=== PATIENT | female | born 1980 | race Caucasian/White ===

== ENCOUNTER 2019-10-10 17:04 | Emergency (ER) | payer OTHER ==
--- OUTSIDE RECORDS SUMMARY | 2019-10-10 17:11 | XMS REPORT | Continuity of Care Document ---
:1980 External Reference #:[id number] Author Name Leonie York M.D. (transmitted by agent of provider Maricruz Sharp) Address [address] [place] [id number] Care Team Providers Name Role Phone Maria Shen MD - Internal Care Team Information Retail Selling Floor Leader Medicine Problems Active Problems Provider Date Skin sensation disturbance Kvng Mabry M.D. Onset: 07/08/2019 Neuralgic amyotrophy Kvng Mabry M.D. Onset: 07/08/2019 Psoas tendinitis Priscilla Gonzalez M.D. Onset: 01/31/2019 Localized, primary osteoarthritis of the Priscilla Gonzalez M.D. Onset: 01/31/2019 pelvic region and thigh Social History Type Date Description Comments Sex Unknown Tobacco Use Start: Unknown Never Smoked Cigarettes Smoking Status Reviewed: 09/14/19 Never Smoked Cigarettes ETOH Use Drinks 3 Alcoholic Beverages Per Week Tobacco Use Start: Unknown Patient has never smoked Recreational Drug Use Current Drug User Exercise Type/Frequency Exercises regularly Allergies, Adverse Reactions, Alerts Active Allergies Reaction Severity Comments Date Sulfa Drugs 01/31/2019 Medications Active Medications SIG Qnty Indications Ordering Provider Date Gabapentin 1 by mouth three 90tabs G54.5 Kvng Mabry 07/08/2019 600mg times a day M.D. Tablets Lexapro 30 mg one a day Unknown Trazodone HCL take every night Unknown 100mg at bedtime. Tablets Meloxicam take one tab Unknown 7.5mg twice daily as Tablets needed for pain, avoid other nsaids Alprazolam as needed Unknown Control Pills one at night Unknown Hydrocodone-Acetamin 1 or 2 tabs by Unknown ophen mouth every 6-8 5-325mg Tablets hours as needed for pain Multi Complete daily Unknown Capsules Turmeric Root apply to Unknown Powder shoulders and elbows as needed [place] 3 1 by mouth twice Unknown 1000mg a day Capsules Escitalopram Oxalate 1 by mouth every Unknown day 20mg Tablets Medications Administered in Office Medication SIG Qnty Indications Ordering Provider Date No Injection Priscilla Gonzalez M.D. 03/21/2019 Injection Depomedrol 40MG Priscilla Gonzalez M.D. 03/21/2019 Injection Immunizations Description No Information Available Vital Signs Date Vital Result Comment 09/14/2019 3:12pm Height 62.5 inches 5'2.50" Weight 143.00 lb Heart Rate 72 /min BP Systolic 122 mmHg BP Diastolic 70 mmHg Respiratory Rate 12 /min Body Temperature 99.0 F Pain Level 4 BMI (Body Mass Index) 25.7 kg/m2 07/08/2019 2:03pm Height 62 inches 5'2" Weight 137.00 lb Heart Rate 61 /min BP Systolic 110 mmHg BP Diastolic 82 mmHg BMI (Body Mass Index) 25.1 kg/m2 Results Test Acquired Date Facility Test Result H/L Range Note Comp Metabolic 07/08/2019 [facility] Sodium 137 mmol/L Normal 135-145 Panel [address] [place] [address] [phone] Potassium 4.4 mmol/L Normal 3.5-5.0 Chloride 102 mmol/L Normal 101-111 Co2 Carbon Dioxide 27 mmol/L Normal 22-32 Anion Gap 8 mmol/L Normal 2-11 Glucose 90 mg/dL Normal 70-100 Blood Urea Nitrogen 13 mg/dL Normal 6-24 Creatinine 0.68 mg/dL Normal 0.51-0.95 BUN/Creatinine Ratio 19.1 Normal 8-20 Calcium 9.9 mg/dL Normal 8.6-10.3 Total Protein 7.1 g/dL Normal 6.4-8.9 Albumin 4.8 g/dL Normal 3.2-5.2 Globulin 2.3 g/dL Normal 2-4 Albumin/Globulin Ratio 2.1 Normal 1-3 Total Bilirubin 0.30 mg/dL Normal 0.2-1.0 Alkaline Phosphatase 60 U/L Normal 34-104 Alt 17 U/L Normal 7-52 Ast 21 U/L Normal 13-39 Egfr Non- 95.4 >60 Egfr 115.4 >60 1 Laboratory test 07/08/2019 [facility] Erythrocyte Sed 3 mm/Hr Normal 0-[address] [place] [address] [phone] C Reactive Protein 5.12 mg/L Normal <8.01 3 Nuclear AB ([place]) By Ifa Igg <1:80 (Negative) 4 Xray 03/21/2019 [facility] Inj/Aspir Major JT Or Bursa W/ US <pending> 1 Because ethnic data is not always readily available, this report includes an eGFR for both -Americans and non- Americans. The National Kidney Disease Education Program (NKDEP) does not endorse the use of the MDRD equation for patients that are not between the ages of 18 and 70, are , have extremes of body size, muscle mass, or nutritional status, or are non- or non-. According to the National Kidney Foundation, irrespective of diagnosis, the stage of the disease is based on the level of kidney function: Stage Description GFR(mL/min/1.73 m(2)) 1 Kidney damage with normal or decreased GFR 90 2 Kidney damage with mild decrease in GFR 60-89 3 Moderate decrease in GFR 30-59 4 Severe decrease in GFR 15-29 5 Kidney failure <15 (or dialysis) 2 Copy Result to: MARIA SHEN ([id number]) 3 Copy Result to: MARIA SHEN ([id number]) 4 <1:80 (Negative) REFERENCE VALUE <1:80 (Negative) Test Performed by: [facility] [address] [place] [address] Speech Therapy Director: Eliud Isabel M.D. Ph.D.; CLIA# [id number] Procedures Date Code Description Status 08/24/2019 25129 Nerve Conduction 09-10 Studies Completed 08/24/2019 66865 Needle Electromyography Complete, Five Or More Muscles Completed Studied 03/21/201994693 Inj/Aspir Major JT Or Bursa W/ US Completed Medical Devices Description No Information Available Encounters Type Date Location Provider Dx Diagnosis Office Visit 07/08/2019 [facility] Kvng Mabry, G54.5 [facility] Paresthesia of skin Office Visit 04/04/2019 2:15p [facility] Priscilla Gonzalez, M25.552 Pain in left at [place] M.D. hip M16.12 Unilateral primary osteoarthritis, left hip M76.12 Psoas tendinitis, left hip Office Visit 03/21/2019 3:00p [facility] Priscilla Gonzalez, M25.552 Pain in left at [place] M.D. hip M16.12 Unilateral primary osteoarthritis, left hip M76.12 Psoas tendinitis, left hip Assessments Date Code Description Provider 09/14/2019 S43.421A Sprain of right rotator cuff capsule, Leonie York M.D. initial encounter 08/24/2019 G54.5 Neuralgic amyotrophy Nyasia Erazo MD 07/08/2019 G54.5 Neuralgic amyotrophy Kvng Mabry M.D. 07/08/2019 R20.2 Paresthesia of skin Kvng Mabry M.D. 04/04/2019 M25.552 Pain in left hip Priscilla Gonzalez M.D. 04/04/2019 M16.12 Unilateral primary osteoarthritis, left Priscilla Gonzalez M.D. hip 04/04/2019 M76.12 Psoas tendinitis, left hip Priscilla Gonzalez M.D. 03/21/2019 M25.552 Pain in left hip Priscilla Gonzalez M.D. 03/21/2019 M16.12 Unilateral primary osteoarthritis, left Priscilla Gonzalez M.D. hip 03/21/2019 M76.12 Psoas tendinitis, left hip Priscilla Gonzalez M.D. Plan of Treatment Future Appointment(s):10/21/2019 3:30 pm - Kvng Mabry M.D. at [facility]09/14/2019 - Leonie York M.D.S43.421A Sprain of right rotator cuff capsule, initial encounterNew Therapy:Physical TherapyFollow up:Follow up: As needed Functional Status Description No Information Available Mental Status Description No Information Available Referrals Refer to Reason for Referral Status Appt Date Sha Sidhu MD psoas tendonitis, hip pain/grinding/oa - surg Closed consult [address] [facility] [address] [place], [place] [id number] [phone]
--- OUTSIDE RECORDS SUMMARY | 2019-10-10 17:12 | XMS REPORT | Continuity of Care Document ---
:1980 External Reference #:[id number] Author Name Maria Shen M.D. Address [address] [place] [address] Care Team Providers Name Role Phone Maria Shen - Family Medicine Care Team Information Training Program Assistant [facility] Utilization [employer] Mate Care Team Information Training Program Assistant [phone] - Health Educator Burton Yadav MD - Sports Medicine Care Team Information Training Program Assistant Deangelo Mcneil MD - Physical Care Team Information Training Program Assistant Medicine & Rehabilitation Problems Active Problems Provider Date Neuralgic amyotrophy Maria Shen M.D. Onset: 01/20/2019 Adjustment disorder with depressed mood Maria Shen M.D. Onset: 2014 Adjustment disorder with anxious mood Maria Shen M.D. Onset: 2014 Vitamin D deficiency Maria Shen M.D. Onset: 05/25/2015 Adjustment disorder with mixed emotional Maria Shen M.D. Onset: 05/25 features Chronic rhinitis Maria Shen M.D. Onset: 05/25/2015 Social History Type Date Description Comments Sex Unknown Tobacco Use Start: Unknown Nonsmoker ETOH Use Occasional 5 drinks a week, max. Exercise Type/Frequency Exercises regularly hiking-every weekend, walking- treadmill at home 1/2 hour daily. Seat Belt/Car Seat Always uses seat belt Allergies, Adverse Reactions, Alerts Active Allergies Reaction Severity Comments Date Sulfa high fever 12/13/2013 Medications Active Medications SIG Qnty Indications Ordering Date Provider Meloxicam Take 1 Tablet By 60tabs G54.5 Maria Hernandez 12/23/2018 7.5mg Tablets Mouth Once To Richi Shen Twice A Day With Food Hydrocodone-Acetamino 1-2 by mouth 4 240tabs M25.552 Maria Hernandez 10/15/2018 phen times a day as Richi Shen 5-325mg Tablets needed new parsonage cortez syndrome Azelastine HCL 1-2 sprays each 30units J31.0 Maria Hernandez 05/25/2015 (Nasal) nostril up to Richi Shen 0.1% Solution twice daily Trazodone HCL Take 1 To 4 120tabs G47.00 Maria Hernandez 06/12/2014 50mg Tablets By Mouth Richi Shen Tablets AT Bedtime Enpresse-28 1 by mouth every 1pack Maria Hernandez Tablets day Richi Shen Herbal Wellness 1 po qd prn Unknown Formula Lexapro 3 PO qd Unknown 10mg Tablets Alprazolam 1 by mouth daily Unknown 0.25mg Tablets Methocarbamol take 1 tablet 30tabs Maria Hernandez 750mg once a day as Richi Shen Tablets needed Gabapentin take one tablet G54.5 Unknown 600mg by mouth three Tablets times a day History Medications Physical Therapy evaluate and treat M25.552 Maria Hernandez 05/06/2019 - lumbar radiculopathy Richi Shen 09/02/2019 Immunizations CPT Code Status Date Vaccine Lot # [id number] Given 05/06/2019 Influenza Vac, Quadrivalent, Slit Virus, Im [id number] Given 08/05/2018 Influenza vac quadrivalent preservative free 6 months and up 61451 Given 06/09/2016 Influenza Vac, Quadrivalent, Slit Virus, Im [id number] 74617 Given 05/25/2015 Influenza Vac, Quadrivalent, Slit Virus, Im [id number] Vital Signs Date Vital Result Comment 09/02/2019 10:46am BP Systolic 110 mmHg BP Diastolic 60 mmHg Heart Rate 68 /min Body Temperature 97.0 F Respiratory Rate 20 /min Height 62 inches 5'2" Weight 145.12 lb BMI (Body Mass Index) 26.5 kg/m2 05/06/2019 2:55pm BP Systolic 108 mmHg BP Diastolic 56 mmHg Heart Rate 72 /min Body Temperature 97.9 F Respiratory Rate 12 /min Height 62 inches 5'2" Weight 141.00 lb BMI (Body Mass Index) 25.8 kg/m2 Results Test Acquired Date Facility Test Result H/L Range Note Comp Metabolic Panel 07/08/2019 [facility] Sodium 137 mmol/L Normal 135-145 Potassium 4.4 mmol/L Normal 3.5-5.0 Chloride 102 [...] >60 Egfr 115.4 >60 1 Laboratory test finding 07/08/2019 [facility] C Reactive Protein 5.12 mg/L Normal <8.01 2 Erythrocyte Sed Rate 3 mm/Hr Normal 0-19 3 Nuclear AB ([place]) By Ifa Igg <1:80 (Negative) 4 1 Because ethnic data is not always [...] dialysis) 2 Copy Result to: MARIA SHEN ([id number]) 3 Copy Result to: MARIA SHEN ([id number]) 4 <1:80 (Negative) REFERENCE VALUE <1:80 (Negative) Test Performed by: [facility] [address] [place], [place] [id number] Business Analyst Project Manager: Eliud Isabel M.D. Ph.D.; CLIA# [id number] Procedures Description No Information Available Medical Devices Description No Information Available Encounters Type Date Location Provider Dx Diagnosis Office Visit 05/06/2019 [facility] Maria Mckeon Encounter for 2:40p Richi Shen immunization G54.5 Neuralgic amyotrophy M25.552 Pain in left hip M54.16 Radiculopathy, lumbar region Assessments Date Code Description Provider 09/02/2019 M25.552 Pain in left hip Maria Shen M.D. 09/02/2019 M79.621 Pain in right upper arm Maria Shen M.D. 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 05/06/2019 G54.5 Neuralgic amyotrophy Maria Shen M.D. 05/06/2019 M25.552 Pain in left hip Maria Shen M.D. 05/06/2019 M54.16 Radiculopathy, lumbar region Maria Shen M.D. Plan of Treatment Future Appointment(s):12/07/2019 2:20 pm - Maria Shen M.D. at [facility]/02/2019 - Maria Shen M.D.M25.552 Pain in left hipComments: continue with Radha Reynoso - Tight hip Twisted core, the mccord to resolved pain. Recommend Henny Lazo. Through [facility]. Maybe you don't have to see the doctor in [place].M79.621 Pain in right upper armComments:refer to ortho.Z15.01 Genetic susceptibility to malignant neoplasm of breastComments: call your insurance company to see if they will pay for you to get a BRACA gene test for breast cancer.AllComments:Medication Management Patient Understands medications she 's taking? Yes No Are there Barriers to Adherence? Yes No Has the patient been asked about herbal supplements and therapies, and OTC meds? Yes No Care Plan1. Patient has been queried about patient's goals/preferences and functional/lifestyle goals at relevant visits. If relevant, describe: na2. Treatment goals as explained to the patient: above3. Are there barriers to meeting treatment goals? Yes No If Yes, please describe:4. Self-Management goals as described to the patient: Yes No Functional Status Description No Information Available Mental Status Description No Information Available Referrals Description No Information Available
[2019-10-10 17:33] VITALS: BP 131/72
--- NOTE | 2019-10-10 17:40 | UC ---
Throat Pain/Nasal Alireza HPI - HPI Summary HPI Summary: 39 yo female presents with sinus symptoms. She tells me that for the last 2 months she has had intermittent sinus pain/pressure/congestion, runny nose, and ears popping. Over the last 2 weeks has felt her symptoms getting worse. She has been taking OTC sudafed, flonase, and allergy medication with no relief. She denies fever, chills, sore throat, cough. She did get a flu shot this year - History of Current Complaint Chief Complaint: UCEar Stated Complaint: SINUS ISSUE, EAR PAIN Time Seen by Provider: 10/10/19 17:40 Hx Obtained From: Patient Hx Last Menstrual Period: 3 weeks ago Onset/Duration: Gradual Onset Severity: Mild Pain Intensity: 3 Pain Scale Used: 0-10 Numeric - Allergies/Home Medications Allergies/Adverse Reactions: Allergies Allergy/AdvReac Type Severity Reaction Status Date / Time Sulfa (Sulfonamide Allergy Severe Fever Verified 10/10/19 17:33 Antibiotics) Home Medications: Home Medications Amoxicillin PO (*) [Amoxicillin 875 MG (*)] 875 mg PO BID #14 tab 10/10/19 [Rx] Escitalopram * [Lexapro *] 30 mg PO DAILY 10/10/19 [History Confirmed 10/10/19] Gabapentin CAP(*) [Neurontin 300 CAP(*)] 600 mg PO TID 10/10/19 [History Confirmed 10/10/19] Levonorgestrel-Ethin Estradiol [Levonor-Eth Estrad Triphasic] 1 tab PO DAILY [History Confirmed 10/10/19] Meloxicam [Mobic] 10/10/19 [History] traZODone TAB* [Desyrel TAB*] 100 mg PO DAILY 10/10/19 [History Confirmed ] PMH/Surg Hx/FS Hx/Imm Hx Psychological History: Anxiety, Depression - Surgical History Surgical History: Yes Surgery Procedure, Year, and Place: oral surgery - DENTAL as a child - Family History Known Family History: Positive: Non-Contributory - Social History Occupation: Employed Full-time Lives: With Family Alcohol Use: Occasionally Substance Use Type: Marijuana Smoking Status (MU): Never Smoked Tobacco Review of Systems All Other Systems Reviewed And Are Negative: No Constitutional: Positive: Negative Skin: Positive: Negative Eyes: Positive: Negative ENT: Positive: Ear Ache, Nasal Discharge, Sinus Congestion, Sinus Pain/ Tenderness Respiratory: Positive: Negative Cardiovascular: Positive: Negative Gastrointestinal: Positive: Negative Neurovascular: Positive: Negative Neurological/Mental Status: Positive: Negative Psychological: Positive: Negative Physical Exam - Summary Physical Exam Summary: GENERAL: NAD. WDWN. No pain distress. SKIN: No rashes, sores, lesions, or open wounds. HEENT: Head: AT/NC Eyes: EOM intact. Conjunctiva clear without inflammation or discharge. Ears: Hearing grossly normal. TMs intact, no bulging, erythema, or edema. Clear fluid behind b/l TMs Nose: Nasal mucosa mildly swollen and erythematous with clear discharge. TTP maxillary and frontal sinus. Positive post nasal drip Throat: Posterior oropharynx without exudates, erythema, or tonsillar enlargement. Uvula midline. NECK: Supple. Nontender. No lymphadenopathy. CHEST: CTAB. No r/r/w. No accessory muscle use. Breathing comfortably and in no distress. CV: RRR. Pulses intact. NEURO: Alert. PSYCH: Age appropriate behavior. Triage Information Reviewed: Yes Vital Signs: Initial Vital Signs Temp 98.8 F 10/10/19 17:28 Pulse 62 10/10/19 17:28 Resp 16 10/10/19 17:28 BP 131/72 10/10/19 17:28 Pulse Ox 98 10/10/19 17:28 Vital Signs Reviewed: Yes Throat Pain/Nasal Course/Dx - Course Course Of Treatment: Given worsening symptoms over the last 2 weeks - will rx for antibiotics at this time. - Differential Dx/Diagnosis Provider Diagnosis: Sinusitis Discharge ED - Sign-Out/Discharge Documenting (check all that apply): Patient Departure All imaging exams completed and their final reports reviewed: No Studies - Discharge Plan Condition: Stable Disposition: HOME Prescriptions: Amoxicillin PO (*) [Amoxicillin 875 MG (*)] 875 mg PO BID #14 tab Patient Education Materials: Sinusitis (ED), Serous Otitis Media (ED) Referrals: Maria Shen MD [Primary Care Provider] - Additional Instructions: If you develop a fever, shortness of breath, chest pain, new or worsening symptoms - please call your PCP or go to the ED immediately. I recommend trying [id number] claritin in addition to your current medications to help with your sinus symptoms - Billing Disposition and Condition Condition: STABLE Disposition: Home
== END 2019-10-10 17:50 | disposition home or self-care (01) ==
LOC: UCEAST 17:04
DX: J32.9 Chronic sinusitis, unspecified (principal); H92.09 Otalgia, unspecified ear; F32.9 Major depressive disorder, single episode, unspecified; F41.9 Anxiety disorder, unspecified; Z88.2 Allergy status to sulfonamides; Z79.899 Other long term (current) drug therapy
CPT/HCPCS: 99212; G0463

== ENCOUNTER 2022-06-13 13:29 | Inpatient (IN) ==
[2022-06-13] MEDS ORDERED: Lactated Ringers 1000 ml BAG 1,000 ML IV ONE (13:38)
[2022-06-13 13:58] LABS: ABS Basophils 0.1 10^3/ul (0-0.2); ABS Lymphocytes 1.3 10^3/ul (1.0-4.8); ABS Monocytes 1.1 10^3/ul (0-0.8); ABS Neutrophils 17.4 10^3/ul (1.5-7.7); Eosinophil % 0.1 %; Hematocrit 49 % (35-47); Hemoglobin 15.9 g/dL (12.0-16.0); Lymphocyte % 6.7 %; Mean Corpuscular HGB Conc 32 g/dL (31-36); Mean Corpuscular Hemoglobin 30 pg (27-31); Mean Corpuscular Volume 94 fL (80-97); Mean Platelet Volume 8.4 fL (7.4-10.4); Platelet Count 378 10^3/uL (150-450); Red Blood Count 5.25 10^6 /uL (3.70-4.87); Red Cell Distribution Width 14 % (10-15)
[2022-06-13 13:59] LABS: Venous Bicarbonate HCO3 5.3 mmol/L (24-28)
[2022-06-13] MEDS ORDERED: NORMOSOL-R pH 7.4 1000 mL BAG 1,000 ML IV ONE (14:06)
[2022-06-13] MEDS ORDERED: Dextrose 50% Syringe 50 ml 25 GM/50 ML SYRINGE IV PUSH PRN ×4 (14:06→15:33)
[2022-06-13 14:39] LABS: HCG Pregnancy < 0.60 mIU/mL
[2022-06-13 14:40] LABS: Blood Urea Nitrogen 12 mg/dL (6-24); Calcium 10.2 mg/dL (8.6-10.3); Chloride 100 mmol/L (101-111); Glucose 417 mg/dL (70-100); Potassium 4.1 mmol/L (3.5-5.0); Sodium 139 mmol/L (135-145); eGFR CKD-EPI 62.2 (>60)
[2022-06-13 14:50] LABS: Anion Gap 32 mmol/L (2-11); CO2 Carbon Dioxide 7 mmol/L (22-32)
[2022-06-13] MEDS ORDERED: Ondansetron 4 mg VIAL 2 MG/ML 2 ml VIAL IV ONE (15:08)
[2022-06-13] MEDS: Insulin Infusion 100unit/100mL 100 UNIT/100 ML BAG IV SCH (15:31)
[2022-06-13] MEDS ORDERED: Famotidine IV 10 MG/ML 2 ml VIAL (20 mg) IV SLOW PU ONE (15:39)
[2022-06-13] MEDS ORDERED: NS 0.9% w/ 20 Meq KCL 1000 ml 1,000 ML IV SCH (16:00)
[2022-06-13] MEDS ORDERED: cefTRIAXone 1 gm/50 mL D5W 1 GM/50 ML BAG IV SCH (16:00)
[2022-06-13] MEDS ORDERED: Potassium Chloride IV 20 MEQ in Lactated Ringers 1000 ml BAG 1,000 ML IVPB SCH (16:00)
[2022-06-13] MEDS ORDERED: NORMOSOL-R pH 7.4 1000 mL BAG 1,000 ML IV SCH (16:00)
[2022-06-13 17:28] LABS: Calcium 8.1 mg/dL (8.6-10.3); Chloride 110 mmol/L (101-111); Magnesium 2.5 mg/dL (1.9-2.7); Potassium 3.5 mmol/L (3.5-5.0); Sodium 141 mmol/L (135-145)
[2022-06-13 17:34] LABS: Blood Urea Nitrogen 10 mg/dL (6-24); Creatine Kinase 42 U/L (10-223); Glucose 277 mg/dL (70-100); Phosphorus 1.2 mg/dL (2.5-5.0); eGFR CKD-EPI 85.4 (>60)
[2022-06-13 17:37] LABS: CO2 Carbon Dioxide < 7 mmol/L (22-32)
[2022-06-13] MEDS ORDERED: Potassium Phosphate IV 15 MMOLE in NS 0.9% 250 ml 250 ML IVPB ONE (17:51)
[2022-06-13 17:58] LABS: Urine Appearance Cloudy; Urine Bilirubin Negative (Negative); Urine Blood 2+ (Negative); Urine Color Straw; Urine Glucose 3+(>=500 mg/dL) (Negative); Urine Ketones 2+ (Negative); Urine Nitrite Negative (Negative); Urine Protein 2+(100 mg/dL) (Negative); Urine Specific Gravity 1.012 (1.002-1.030); Urine Urobilinogen Negative (Negative)
[2022-06-13] MEDS ORDERED: D5W 1/2 NS KCl 20 meq 1000 ml 1,000 ML IV SCH (18:00)
[2022-06-13 18:07] LABS: Urine Bacteria Absent (Absent); Urine Red Blood Cell 2+(6-10/hpf) (Absent); Urine Squamous Epithelial Cell Present (Absent); Urine White Blood Cell Absent (Absent)
[2022-06-13 18:08] LABS: TSH Ultra Thyroid Stim Horm 0.83 mcIU/mL (0.34-5.60)
[2022-06-13 18:13] LABS: ALT 22 U/L (7-52); AST 13 U/L (13-39); Albumin 4.9 g/dL (3.2-5.2); Albumin/Globulin Ratio 2.1 (1-3); Alkaline Phosphatase 170 U/L (35-149); Globulin 2.3 g/dL (2-4); Total Protein 7.2 g/dL (6.4-8.9)
[2022-06-13] MEDS: Enoxaparin 40 MG/0.4 ML SYR SUBCUT SCH (18:30)
[2022-06-13] MEDS: CMCS:Meloxicam 7.5 mg TAB (NF) PO SCH (19:26)
[2022-06-13] MEDS: Calcium Carb (TUMS) 500 mg CHEW TAB PO PRN (20:09)
[2022-06-13 20:44] LABS: Blood Urea Nitrogen 12 mg/dL (6-24); Calcium 8.6 mg/dL (8.6-10.3); Chloride 111 mmol/L (101-111); Glucose 344 mg/dL (70-100); Magnesium 2.3 mg/dL (1.9-2.7); Phosphorus 1.8 mg/dL (2.5-5.0); Sodium 141 mmol/L (135-145)
[2022-06-13 20:50] LABS: CO2 Carbon Dioxide < 7 mmol/L (22-32)
[2022-06-13] MEDS ORDERED: Lactated Ringers 1000 ml BAG 1,000 ML IV SCH (21:00)
[2022-06-14 01:22] LABS: Calcium 9.1 mg/dL (8.6-10.3); Magnesium 2.1 mg/dL (1.9-2.7); Phosphorus 1.4 mg/dL (2.5-5.0); Potassium 3.6 mmol/L (3.5-5.0); eGFR CKD-EPI 74.8 (>60)
[2022-06-14] MEDS: KCL 20 MEQ/100 ML IVPREMIX 20 MEQ/100 ML BAG IV SCH ×2 (01:55→04:30)
[2022-06-14 05:10] LABS: ABS Basophils 0.1 10^3/ul (0-0.2); ABS Lymphocytes 1.3 10^3/ul (1.0-4.8); ABS Monocytes 1.5 10^3/ul (0-0.8); Hematocrit 37 % (35-47); Hemoglobin 12.4 g/dL (12.0-16.0); Lymphocyte % 7.6 %; Mean Corpuscular HGB Conc 34 g/dL (31-36); Mean Corpuscular Hemoglobin 30 pg (27-31); Mean Corpuscular Volume 90 fL (80-97); Mean Platelet Volume 7.8 fL (7.4-10.4); Platelet Count 268 10^3/uL (150-450); Red Blood Count 4.11 10^6 /uL (3.70-4.87); Red Cell Distribution Width 13 % (10-15); White Blood Count 16.9 10^3/uL (3.5-10.8)
[2022-06-14] MEDS: Calcium Carb (TUMS) 500 mg CHEW TAB PO PRN ×2 (05:21→14:01)
[2022-06-14 05:46] LABS: Calcium 8.9 mg/dL (8.6-10.3); Phosphorus 1.5 mg/dL (2.5-5.0); Potassium 3.9 mmol/L (3.5-5.0); eGFR CKD-EPI 73.9 (>60)
[2022-06-14] MEDS: Insulin Infusion 100unit/100mL 100 UNIT/100 ML BAG IV SCH (05:47)
[2022-06-14] MEDS ORDERED: Potassium Phosphate IV 15 MMOLE in NS 0.9% 250 ml 250 ML IVPB ONE ×2 (05:58→18:30)
[2022-06-14] MEDS ORDERED: Ondansetron 4 mg VIAL 2 MG/ML 2 ml VIAL ONE (07:48)
[2022-06-14] MEDS: Ondansetron 4 mg VIAL 2 MG/ML 2 ml VIAL IV PRN (08:00)
[2022-06-14] MEDS: CMCS:Meloxicam 7.5 mg TAB (NF) PO SCH ×2 (08:45→08:49)
[2022-06-14] MEDS ORDERED: Potassium & Sodium Phos 250 mg = 1 PACKET PO SCH (09:00)
[2022-06-14] MEDS ORDERED: Lactated Ringers 1000 ml BAG 1,000 ML IV SCH ×3 (09:00→19:00)
[2022-06-14 09:21] LABS: Calcium 9.5 mg/dL (8.6-10.3); Magnesium 2.1 mg/dL (1.9-2.7); Phosphorus 1.2 mg/dL (2.5-5.0); Potassium 3.5 mmol/L (3.5-5.0); eGFR CKD-EPI 74.8 (>60)
[2022-06-14] MEDS ORDERED: D5LR 1000 ml BAG 1,000 ML IV SCH ×2 (10:00→13:00)
[2022-06-14] MEDS ORDERED: Dextrose 50% Syringe 50 ml 25 GM/50 ML SYRINGE IV PUSH PRN ×5 (12:05→22:03)
[2022-06-14 12:35] LABS: Calcium 9.2 mg/dL (8.6-10.3); Phosphorus 3.1 mg/dL (2.5-5.0); Potassium 4.3 mmol/L (3.5-5.0); eGFR CKD-EPI 86.6 (>60)
[2022-06-14] MEDS ORDERED: Insulin Infusion 100unit/100mL 100 UNIT/100 ML BAG IV ONE ×2 (12:52→14:34)
[2022-06-14] MEDS ORDERED: Insulin Infusion 100unit/100mL 100 UNIT/100 ML BAG IV SCH (17:00)
[2022-06-14 17:26] LABS: Calcium 9.5 mg/dL (8.6-10.3)
[2022-06-14 17:32] LABS: Phosphorus 1.5 mg/dL (2.5-5.0); eGFR CKD-EPI 105.7 (>60)
[2022-06-14] MEDS: Enoxaparin 40 MG/0.4 ML SYR SUBCUT SCH (17:46)
[2022-06-14] MEDS ORDERED: Insulin GLARGINE 100 un/ml 10 ml VIAL SUBCUT SCH (21:00)
[2022-06-14 21:30] LABS: Calcium 9.2 mg/dL (8.6-10.3); Phosphorus 2.4 mg/dL (2.5-5.0); Potassium 3.2 mmol/L (3.5-5.0); eGFR CKD-EPI 109.7 (>60)
[2022-06-14] MEDS ORDERED: Potassium Chlor 20 meq TAB.ER PO ONE (21:48)
[2022-06-15 01:11] LABS: Calcium 8.8 mg/dL (8.6-10.3); Potassium 3.4 mmol/L (3.5-5.0); eGFR CKD-EPI 103.9 (>60)
[2022-06-15] MEDS ORDERED: Potassium Chlor 20 meq TAB.ER PO ONE (01:17)
[2022-06-15] MEDS ORDERED: Dextrose 50% Syringe 50 ml 25 GM/50 ML SYRINGE IV PUSH PRN ×3 (01:17→18:34)
[2022-06-15 05:14] LABS: ABS Basophils 0.1 10^3/ul (0-0.2); ABS Lymphocytes 2.1 10^3/ul (1.0-4.8); ABS Monocytes 0.9 10^3/ul (0-0.8); Eosinophil % 0.2 %; Hematocrit 36 % (35-47); Hemoglobin 11.9 g/dL (12.0-16.0); Lymphocyte % 17.5 %; Mean Corpuscular HGB Conc 33 g/dL (31-36); Mean Corpuscular Hemoglobin 30 pg (27-31); Mean Corpuscular Volume 90 fL (80-97); Platelet Count 229 10^3/uL (150-450); Red Cell Distribution Width 14 % (10-15); White Blood Count 12.1 10^3/uL (3.5-10.8)
[2022-06-15 05:41] LABS: Calcium 8.9 mg/dL (8.6-10.3); Magnesium 1.9 mg/dL (1.9-2.7); Phosphorus 2.4 mg/dL (2.5-5.0); Potassium 3.6 mmol/L (3.5-5.0); eGFR CKD-EPI 112.1 (>60)
[2022-06-15] MEDS: Ondansetron 4 mg VIAL 2 MG/ML 2 ml VIAL IV PRN ×3 (07:59→17:05)
[2022-06-15] MEDS ORDERED: Lactated Ringers 1000 ml BAG 1,000 ML IV SCH ×2 (08:12→09:00)
[2022-06-15] MEDS: Calcium Carb (TUMS) 500 mg CHEW TAB PO PRN ×2 (08:29→11:42)
[2022-06-15] MEDS: Prochlorperazine 5 mg/ml 2 ml VIAL (10 mg) IV PRN ×2 (08:52→18:14)
[2022-06-15] MEDS ORDERED: Prochlorperazine 5 mg/ml 2 ml VIAL (10 mg) ONE (09:03)
[2022-06-15] MEDS: Pantoprazole VIAL 40 MG VIAL IV SCH (09:11)
[2022-06-15] MEDS: CMCS:Meloxicam 7.5 mg TAB (NF) PO SCH (09:46)
[2022-06-15 11:52] LABS: Calcium 8.5 mg/dL (8.6-10.3); Potassium 3.3 mmol/L (3.5-5.0); eGFR CKD-EPI 110.5 (>60)
[2022-06-15] MEDS ORDERED: Lactated Ringers 1000 ml BAG 1,000 ML IV ONE ×2 (12:25→18:34)
[2022-06-15] MEDS ORDERED: Insulin Infusion 100unit/100mL 100 UNIT/100 ML BAG IV SCH (12:32)
[2022-06-15] MEDS ORDERED: D5LR 1000 ml BAG 1,000 ML IV SCH (13:00)
[2022-06-15] MEDS: KCL 20 MEQ/100 ML IVPREMIX 20 MEQ/100 ML BAG IV SCH ×2 (14:16→17:04)
[2022-06-15] MEDS ORDERED: NS 0.9% 1000 ml BAG 1,000 ML IV ONE (16:20)
[2022-06-15] MEDS: Enoxaparin 40 MG/0.4 ML SYR SUBCUT SCH (17:04)
[2022-06-15 18:24] LABS: Magnesium 1.8 mg/dL (1.9-2.7); Potassium 3.3 mmol/L (3.5-5.0); eGFR CKD-EPI 110.5 (>60)
[2022-06-15] MEDS ORDERED: Magnesium Sulfate 2 gm BAG 2 GM/50 ML BAG IVPB ONE (18:37)
[2022-06-15] MEDS ORDERED: Insulin GLARGINE 100 un/ml 10 ml VIAL SUBCUT SCH (21:00)
[2022-06-16] MEDS: KCL 20 MEQ/100 ML IVPREMIX 20 MEQ/100 ML BAG IV SCH ×2 (00:59→03:05)
[2022-06-16 01:17] LABS: Calcium 8.8 mg/dL (8.6-10.3); eGFR CKD-EPI 113.9 (>60)
[2022-06-16 01:19] LABS: Potassium 3.4 mmol/L (3.5-5.0)
[2022-06-16] MEDS ORDERED: Potassium Chlor 20 meq TAB.ER PO ONE (02:24)
[2022-06-16] MEDS ORDERED: Potassium Phosphate IV 15 MMOLE in NS 0.9% 250 ml 250 ML IVPB ONE ×2 (02:25→11:30)
[2022-06-16 05:29] LABS: ABS Lymphocytes 1.2 10^3/ul (1.0-4.8); ABS Monocytes 0.8 10^3/ul (0-0.8); ABS Neutrophils 7.8 10^3/ul (1.5-7.7); Eosinophil % 0.1 %; Hematocrit 37 % (35-47); Hemoglobin 12.6 g/dL (12.0-16.0); Lymphocyte % 12.5 %; Mean Corpuscular HGB Conc 34 g/dL (31-36); Mean Corpuscular Hemoglobin 30 pg (27-31); Mean Corpuscular Volume 88 fL (80-97); Mean Platelet Volume 7.4 fL (7.4-10.4); Platelet Count 242 10^3/uL (150-450); Red Blood Count 4.17 10^6 /uL (3.70-4.87); Red Cell Distribution Width 13 % (10-15)
[2022-06-16 06:33] LABS: Calcium 8.7 mg/dL (8.6-10.3); Magnesium 2.1 mg/dL (1.9-2.7); Potassium 3.4 mmol/L (3.5-5.0); eGFR CKD-EPI 115.3 (>60)
[2022-06-16] MEDS: Pantoprazole VIAL 40 MG VIAL IV SCH (08:39)
[2022-06-16] MEDS: CMCS:Meloxicam 7.5 mg TAB (NF) PO SCH (08:40)
[2022-06-16] MEDS ORDERED: Insulin GLARGINE 100 un/ml 10 ml VIAL SUBCUT ONE ×2 (08:58→21:00)
[2022-06-16] MEDS: Ondansetron 4 mg VIAL 2 MG/ML 2 ml VIAL IV PRN (13:07)
[2022-06-16 16:30] LABS: Calcium 9.6 mg/dL (8.6-10.3); Phosphorus 3.6 mg/dL (2.5-5.0); Potassium 4.4 mmol/L (3.5-5.0); eGFR CKD-EPI 111.7 (>60)
[2022-06-16] MEDS: Enoxaparin 40 MG/0.4 ML SYR SUBCUT SCH (16:33)
[2022-06-16 16:54] LABS: Venous Bicarbonate HCO3 25.3 mmol/L (24-28)
[2022-06-16] MEDS: Bacitracin OINTMENT TUBE TOPICAL SCH (18:29)
[2022-06-17] MEDS ORDERED: Meloxicam 7.5 mg TAB (NF) PO ONE (01:23)
[2022-06-17] MEDS: Pantoprazole VIAL 40 MG VIAL IV SCH (08:18)
[2022-06-17] MEDS: Bacitracin OINTMENT TUBE TOPICAL SCH ×3 (08:18→21:15)
[2022-06-17] MEDS: CMCS:Meloxicam 7.5 mg TAB (NF) PO SCH (09:40)
[2022-06-17 14:46] LABS: Glucose Confirmatory 464 mg/dL (70-100)
[2022-06-17] MEDS: Enoxaparin 40 MG/0.4 ML SYR SUBCUT SCH (15:08)
[2022-06-17] MEDS ORDERED: Dextrose 50% Syringe 50 ml 25 GM/50 ML SYRINGE IV PUSH PRN (16:01)
[2022-06-17] MEDS ORDERED: Insulin GLARGINE 100 un/ml 10 ml VIAL SUBCUT SCH (21:00)
[2022-06-18] MEDS: CMCS:Meloxicam 7.5 mg TAB (NF) PO SCH (08:37)
[2022-06-18] MEDS: Bacitracin OINTMENT TUBE TOPICAL SCH ×2 (08:37→13:41)
[2022-06-18 11:25] VITALS: BP 121/78
[2022-06-18] MEDS ORDERED: Insulin GLARGINE 100 un/ml 10 ml VIAL SUBCUT SCH ×2 (12:10→21:00)
[2022-06-20 11:47] LABS: Anti GAD 65 Antibody 9.33 nmol/L (<= 0.02); Zinc Transporter 8 (ZnT8) Ab <15.0 U/mL (<15.0)
== END 2022-06-18 16:50 | disposition home or self-care (01) | DRG 720 ==
LOC: ED 13:29 → EDHOLD 15:24 → SUATTDRO 15:24 → ICU 17:44 → MED 06-16 14:32
PROVIDERS: ADMIT Internal Medicine Critical Care Medicine; ATTEND Internal Medicine

== ENCOUNTER 2024-08-01 06:00 | Observation (INO) ==
[~2024-08-01 06:00] MED LIST: Chlorhexidine MOUTHWASH 0.12% 15 ML UDC ONE; Lidocaine 1% w EPI 1:100,000 MDV 50 ML VIAL ONE; Lidocaine 1% w EPI 1:200,000 SDV 30 ML VIAL ONE; Naloxone 0.4 mg VIAL 0.4 mg/ml 1 ml VIAL IV PRN; ceFAZolin VIAL VIAL ONE
[2024-08-01] MEDS ORDERED: Scopolamine 1 mg/72hr PATCH ONE (06:13)
[2024-08-01] MEDS ORDERED: ceFAZolin 2 GM PREMIX 2 GM/50 ML BAG ONE (06:14)
[2024-08-01] MEDS: Scopolamine 1 mg/72hr PATCH TRANSDERM ONE (06:50)
[2024-08-01] MEDS: Buffered Lidocaine 1% SYRIN 1 ml INTRADERM ONE (06:52)
[2024-08-01] MEDS ORDERED: Rocuronium 50 mg VIAL 10 mg/ml 5 ml VIAL (50 mg) ONE ×2 (07:09→08:13)
[2024-08-01] MEDS ORDERED: Lidocaine 2% PF 5 ML VIAL ONE (07:09)
[2024-08-01] MEDS ORDERED: Propofol 10 MG/ML 20 ML BTL ONE (07:09)
[2024-08-01] MEDS ORDERED: Dexamethasone IV 4 MG/ML VIAL 1 ml VIAL ONE ×2 (07:09→07:53)
[2024-08-01] MEDS ORDERED: Ondansetron 4 mg VIAL 2 MG/ML 2 ml VIAL ONE ×2 (07:09→10:55)
[2024-08-01] MEDS ORDERED: fentaNYL 250 mcg/5 ml 50 MCG/ML 5 ml VIAL (250 MCG) ONE (07:10)
[2024-08-01] MEDS ORDERED: Midazolam 2 mg/2 ml VIAL 1 mg/ml 2 ml VIAL (2 mg) ONE (07:10)
[2024-08-01 07:33] LABS: Rapid COVID-19 Molecular Undetected (Undetected)
[2024-08-01] MEDS ORDERED: Dexmedetomidine 200 mcg/2 ml 2 ml VIAL (200 mcg) ONE (07:54)
[2024-08-01] MEDS ORDERED: Phenylephrine IV 10 MG/ML 1 ml VIAL ONE (09:12)
[2024-08-01] MEDS ORDERED: fentaNYL 100 mcg/2 ml 50 MCG/ML VIAL ONE ×2 (10:03→10:48)
[2024-08-01] MEDS ORDERED: Dextran 70/Hypromellose Tears Eye Drops 15 ml BTL (for Artificials Tears) BOTH EYES PRN (10:39)
[2024-08-01] MEDS ORDERED: Benzocaine/Menthol LOZ MT PRN (10:39)
[2024-08-01] MEDS ORDERED: Morphine 2 MG/ML SYRINGE IV PRN (10:39)
[2024-08-01] MEDS ORDERED: Calcium Carb (TUMS) 500 mg CHEW TAB PO PRN (10:39)
[2024-08-01] MEDS ORDERED: Senna TAB 8.6 mg TAB PO PRN (10:39)
[2024-08-01] MEDS: fentaNYL 100 mcg/2 ml 50 MCG/ML VIAL IV PRN (10:53)
[2024-08-01] MEDS: Ondansetron 4 mg VIAL 2 MG/ML 2 ml VIAL IV PRN (10:56)
[2024-08-01] MEDS ORDERED: HYDROmorphone 1 MG/1 ML SYRINGE ONE (11:02)
[2024-08-01] MEDS: HYDROmorphone 1 MG/1 ML SYRINGE IV PRN (11:03)
[2024-08-01] MEDS ORDERED: INSULIN ASPART SUBCUT SCH (11:30)
[2024-08-01] MEDS ORDERED: [UNRECOGNIZED DRUG - OTHER] SUBCUT SCH (11:30)
[2024-08-01] MEDS: Lactated Ringers 1000 ml BAG 1,000 ML IV SCH ×2 (13:41→14:06)
[2024-08-01] MEDS: Acetaminophen IV 1 GM/100ML 1,000 MG/100 ML BAG IV ONE (13:41)
[2024-08-01] MEDS ORDERED: Dextrose 50% Syringe 50 ml 25 GM/50 ML SYRINGE IV PUSH PRN ×3 (13:43→15:52)
[2024-08-01] MEDS: AZELASTINE INTRANASAL SCH (21:04)
[2024-08-01] MEDS: Fluticasone NASAL SPRAY 50MCG 16 gm SPRAY BTL INTRANASAL SCH (21:04)
[2024-08-01] MEDS: Phenol 1.4% Throat Spray BTL MT PRN (21:05)
[2024-08-01] MEDS: Prochlorperazine 5 mg/ml 2 ml VIAL (10 mg) IV PRN (22:35)
[2024-08-02] MEDS: LEVONORGESTREL ETHINYL ESTRAD PO SCH (07:54)
[2024-08-02] MEDS: Insulin GLARGINE 100 un/ml 10 ml VIAL SUBCUT SCH (08:49)
[2024-08-02 09:56] VITALS: BP 140/61
== END 2024-08-02 11:45 | disposition home or self-care (01) ==
LOC: AA 06:00 → INTOOBSV 06:00 → SSU 10:39
PROVIDERS: ADMIT Neurological Surgery; ATTEND Neurological Surgery